=== PATIENT | female | born 1985 | race Caucasian/White ===

== ENCOUNTER 2023-05-03 04:20 | Emergency (ER) | payer OTHER ==
[2023-05-03] MEDS ORDERED: Ondansetron PF 4 MG/2 ML Vial ONE (04:46)
[2023-05-03 04:51] LABS: #Basophils 0.1 10x3/uL (0.0-0.2); #Monocytes 0.7 10x3/uL (0.0-1.1); #Neutrophils 13.3 10x3/uL (1.5-8.4); %Basophils 0.6 % (0.0-2.0); %Eosinophils 0.1 % (0.0-6.0); %Lymphocytes 5.8 % (18.0-47.0); %Monocytes 4.9 % (0.0-10.0); %Neutrophils 88.1 % (40.0-75.0); Hemoglobin 16.8 g/dL (12.0-15.5); Mean Corpuscular HGB CONC 36.1 g/dL (32.0-36.0); Mean Corpuscular Hemoglobin 33.8 pg (27.0-33.0); Mean Corpuscular Volume 93.6 fl (81.6-98.3); Mean Platelet Volume 10.1 fl (7.4-10.4); Platelet Count 312 10x3/uL (150-450); RBC Distribution Width 12.4 % (11.5-14.5); Red Blood Cell (RBC) Count 4.97 10x6/uL (3.90-5.03); White Blood Cell (WBC) Count 15.1 10x3/uL (3.5-10.5)
[2023-05-03 04:58] LABS: BHCG - Serum Negative (NEGATIVE); Pregs Control Background? CLEAR/WHITE (CLR/WHITE); Pregs Control Bar Appear? YES (CONTROL BAR)
[2023-05-03] MEDS ORDERED: Prochlorperazine 10 MG/2 ML VIAL ONE (04:58)
[2023-05-03] MEDS ORDERED: diphenhydrAMINE 50 MG/ML VIAL ONE (04:58)
[2023-05-03 05:19] LABS: ALT (SGPT) 400 U/L (8-55); AST (SGOT) 785 U/L (5-34); Alkaline Phosphatase 103 U/L (40-110); Anion Gap 22 mmol/L (10-20); BUN (Urea Nitrogen) 8 mg/dL (7.0-18.7); Bilirubin, Total 2.6 mg/dL (0.2-1.2); Calc. Creatinine Clearance 0 mL/min (70-130); Calcium 10.7 mg/dL (7.8-10.44); Carbon Dioxide 16 mmol/L (22-29); Chloride 102 mmol/L (98-107); Estimated GFR 73; Globulin 3.5 g/dL (2.4-3.5); Glucose 160 mg/dL (70-105); Lipase 17 U/L (8-78); Potassium 3.5 mmol/L (3.5-5.1); Protein, Total 8.5 g/dL (6.0-8.3); Sodium 136 mmol/L (136-145)
[2023-05-03] MEDS ORDERED: Piperacillin/Tazobactam 4.5 GM VIAL ONE (06:21)
[2023-05-03 07:23] LABS: Bilirubin Neg (Negative); Blood, Urine Negative (Negative); Clarity Clear (Clear); Glucose, Urine (Dipstick) Normal (Negative); Ketone, Urine 50 mg/dL (Negative); Leukocyte Negative (Negative); Nitrite Negative (Negative); Protein, Urine (Dipstick) 30 mg/dl (Neg-Trace)
[2023-05-03 07:38] LABS: CAUTI Indications for Culture Pelvic or flank pain; RBC/HPF 0-3 HPF (0-3); Squamous Epithelial 0-3 HPF (0-3); WBC/HPF 0-3 HPF (0-3)
[2023-05-03 07:39] LABS: Bacteria/HPF Rare-Few HPF (None Seen); Urine Culture Reflex No No
[2023-05-03] MEDS ORDERED: Iopamidol 370 76% 100 ML VIAL ONE (08:50)
== END 2023-05-03 08:30 | disposition home or self-care (01) ==
LOC: CSHERS 04:20
DX: K92.0 Hematemesis (principal); K76.0 Fatty (change of) liver, not elsewhere classified
CPT/HCPCS: 74177; 80053; 81001; 83690; 84703; 85025; 96361; 96365; 96375; J0780; J1200; J2405; J2543; Q9967